=== PATIENT | male | born 1970 | race Caucasian/White ===

== ENCOUNTER 2021-08-16 11:25 | Outpatient (CLI) | payer OTHER, SELFPAY ==
[2021-08-17 15:06] LABS: COVID-19 RT-PCR UVMMC Result Negative (Negative)
== END 2021-08-16 11:26 | disposition home or self-care (01) ==
PROVIDERS: Visit Provider Dentist General Practice
DX: Z20.822 Contact with and (suspected) exposure to COVID-19 (principal)
CPT/HCPCS: U0003